=== PATIENT | female | born 1995 | race Caucasian/White ===

== ENCOUNTER → 2017-09-09 | Outpatient (CLI) | payer OTHER | LOC: COL.PUL 08:00 | DX: J45.990 Exercise induced bronchospasm (principal) ==

== ENCOUNTER 2018-07-20 13:37 | Outpatient (RCR) | payer OTHER | END 2018-10-18 | disposition still patient (30) | LOC: WSOH | DX: S90.31XA Contusion of right foot, initial encounter (principal); S90.811A Abrasion, right foot, initial encounter; W55.29XA Other contact with cow, initial encounter; Y92.214 College as the place of occurrence of the external cause; Y99.0 Civilian activity done for income or pay ==

== ENCOUNTER 2019-08-25 09:31 | Emergency (ER) | payer OTHER ==
[~2019-08-25] VITALS: Ht 165.1 cm; Wt 59.1 kg
[2019-08-25 09:53] VITALS: TEMP 98.5
[2019-08-25 11:00] VITALS: BP 113/60; PULSE 54
== END 2019-08-25 11:01 | disposition home or self-care (01) ==
LOC: COL.ER 09:31
DX: R10.30 Lower abdominal pain, unspecified (principal); Z86.718 Personal history of other venous thrombosis and embolism